=== PATIENT | male | born 1930 | race Caucasian/White ===

== ENCOUNTER 2017-01-21 07:10 | Day surgery (SDC) | payer MEDICARE, OTHER ==
[~2017-01-21] VITALS: Ht 167.6 cm; Wt 74.8 kg
[~2017-01-21 07:10] MED LIST: AMLO5TAB2 PO; HYDR25TAB PO; LISI-542 PO; LISI2.5T76 PO; SIMV5TAB4 PO; XARE15TA PO
[2017-01-21] MEDS ORDERED: LR 1,000 ML IV ONE (07:30)
[2017-01-21] MEDS ORDERED: PROPOFOL 200 MG/20 ML VIAL As Ordered ONE ×2 (08:14→12:37)
[2017-01-21] MEDS ORDERED: LIDOCAINE 2% INJ 100 MG/5 ML SDV (FOR ANES.) As Ordered ONE (08:14)
[2017-01-21] MEDS ORDERED: MIDAZOLAM INJ 2 MG/2 ML VIAL (J2250) As Ordered ONE (08:15)
[2017-01-21] MEDS ORDERED: fentaNYL 100 MCG/2 ML INJECTION (J3010) As Ordered ONE (08:15)
[2017-01-21] MEDS ORDERED: ISOVUE-300 61% 50ML VIAL (Q9967) As Ordered ONE (09:30)
[2017-01-21] MEDS ORDERED: LIDOCAINE 1% SDV INJ 30 ML VIAL As Ordered ONE (09:30)
[2017-01-21] MEDS ORDERED: ONDANSETRON 4MG/2ML VIAL (J2405) IV PRN (13:45)
[2017-01-21] MEDS ORDERED: LR 1,000 ML IV SCH (13:45)
[2017-01-21] MEDS ORDERED: fentaNYL 100 MCG/2 ML INJECTION (J3010) IV PRN (13:45)
--- NOTE | 2017-01-21 14:03 | REP ---
AP PORTABLE CHEST: 01/21/2017. Clinical history: Status post single lead pacer placement. Comparison: 06/17/2015 chest x-ray. Findings: Two AP semi-erect portable chest were performed to encompass the entirety of the chest. Skin di and a battery unit for pacer over the left upper chest noted with the single lead terminating in the right ventricle. The lungs are hyperinflated. There is some underlying mild interstitial fibrotic change but no pleural effusion, lateral pleural thickening or pneumothorax visible on the left side and either lung shows consolidation or atelectasis. Heart size not grossly enlarged. There is no vascular redistribution or pulmonary edema. The aorta and airway intact. Bones intact with minor degenerative changes, shoulders and spine. Impression: 1. There is a new single lead pacer over the left upper chest with skin di above the battery unit and with the lead terminating in the apex of the right ventricle. 2. No gross cardiomegaly or edema. I see no infiltrate, effusion, atelectasis or mass. No pneumothorax. Signed by Morgan Escobar MD 01/21/2017 02:35 P
--- NOTE | 2017-01-21 14:27 | RO ---
DATE OF PROCEDURE: 01/21/2017 PREOPERATIVE DIAGNOSES: 1. Intermittent high-grade AV block. 2. Chronic atrial fibrillation. POSTOPERATIVE DIAGNOSES: 1. Intermittent high-grade AV block. 2. Chronic atrial fibrillation. PROCEDURE: Implantation of single chamber ventricular demand pacemaker. IMPLANTING REVIEW SCHEDULING COORDINATOR: Dr. Monroe Curtis ANESTHESIOLOGIST: Dr. Leyva TYPE OF ANESTHESIA: Monitored local anesthesia. CLINICAL SUMMARY: This 86-year-old, , resident of [place], [place], is well-known to Dr. Manzanares's cardiology service with known hypertensive heart disease complicated by abnormal EKG, atrial fibrillation, and intermittent high-grade AV block. His atrial arrhythmia had been paroxysmal, but EKG on January 14, 2017 showed atrial fibrillation with controlled ventricular rate with QRS complexes occurring in a bigeminal pattern. Rate without negative chronotropic therapy was only 59 BPM. A Holter monitor documented significant pauses of up to 3 seconds on recurrent occasions. In light of this, he was referred to our pacemaker service for device implantation. At this point, he has been feeling fairly well, ultimately limited by dyspnea. He has been free of any chest pain, shortness of breath, palpitations or dizziness. On oral anticoagulant therapy, has been free of any symptom or sign of embolic phenomenon. Echocardiogram on April 06, 2015 showed left ventricle hypertrophy with LVEF of 60%-65% with fairly severely dilated left atrium. In light of this and his current persistent atrial fibrillation (present on monitor today), we elected to proceed with a single chamber pacemaker. We explained this to the patient and his family who appear to understand and agree. Pleasant, elderly male lying comfortably. Heart rate 60 BPM and irregular. Blood pressure 136/74 in the right arm supine. Respiratory 16 per minute. Oxygen saturation 96% on room air. BMI 26.5. No pallor or icterus. Normal oral moisture. Trachea midline. Neck veins were not elevated. Good air entry over both lung harvey with no adventitious sounds. Apical impulse at mid clavicular line, fifth intercostal space. S1 and S2 were variable. No audible murmur. No dependent edema. Soft abdomen. Normal pedal pulses. EKG shows atrial fibrillation with somewhat slow ventricular response and frequent PVCs. Complete blood count July 18, 2015 showed a hemoglobin of 13.6. Chemistry was normal with a BUN slightly elevated 35 with creatinine 1.8 and glucose 93. TSH was normal at 1.27. DESCRIPTION OF PROCEDURE: In a fasting state following informed consent and Ancef 2 grams IV premedication, the patient was taken to the operating theater. Numerous skin electrodes were applied to facilitate continuous electrocardiographic monitoring. The left subclavian region was prepped and draped in the usual fashion and the skin was infiltrated with 1% Xylocaine. The left axillary vein was catheterized and with considerable difficulty we were able to advance the guidewire down the greater veins to his inferior vena cava below his diaphragm. Unfortunately, his upper neck veins were extremely tortuous and getting the guidewire in appropriate position took considerably longer than normal. A 5 cm linear incision was made several centimeters below and parallel to the left clavicle. Dissection was carried down to the level of the pectoralis fascia and a pocket was fashioned below level of the incision line. A single bipolar active fixation screw-in steroid eluting pacing lead was then positioned to the right ventricular apex under fluoroscopic and electrocardiographic control. The ventricular lead ([employer], model number [id number], serial number [id number]) measurements were: Stimulation threshold 0.4 V/0.4 ms/impedance 1190 ohms. The R wave measured 5.1 mV. This lead was secured in position with a sleeve sutured at its insertion site. It was then connected to a single chamber pulse generator ([employer] - Assurity MRI compatible, model number [id number], serial number [id number]) and appropriate VVI pacing was documented. The generator was placed in the pocket and secured in position with a suture through the upper right-hand corner of the epoxy header. The subcutaneous tissues were approximated using a running chromic suture and the skin was closed using di. A dry dressing was applied. The patient was returned to the recovery room in good condition. No apparent complications. Estimated blood loss 5-10 mL. A portable upright chest x-ray postoperatively showed good lead position with no pneumothorax. EKG showed consistent ventricular pacing at 60 BPM. Our plan is to monitor the patient in hospital overnight and he will receive an additional three doses of Ancef 1 gram every 8 hours IV. A followup PA and left lateral chest x-ray and EKG will be obtained in the morning and his device will be reinterrogated prior to his discharge; hopefully, before noon.
[2017-01-21 15:50] VITALS: BP 141/71
[2017-01-21 16:20] VITALS: BP 140/68
[2017-01-21 17:20] VITALS: BP 153/68
[2017-01-21] MEDS: ACETAMINOPHEN TAB 650MG DOSE (2X325MG) PO PRN (17:58)
[2017-01-21 18:20] VITALS: BP 123/60
[2017-01-21 19:20] VITALS: BP 131/61
[2017-01-21] MEDS ORDERED: SIMVASTATIN 5 MG TAB PO SCH (21:00)
--- NOTE | 2017-01-21 21:35 | ECGEPIP ---
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
[2017-01-22 00:05] VITALS: BP 144/63
[2017-01-22] MEDS: ACETAMINOPHEN TAB 650MG DOSE (2X325MG) PO PRN (00:44)
[2017-01-22] MEDS ORDERED: SLF 3 ML SYR IV PRN (01:45)
[2017-01-22 03:22] VITALS: BP 146/83
[2017-01-22 08:00] VITALS: BP 148/66
[2017-01-22] MEDS ORDERED: LISINOPRIL 5 MG TAB PO SCH (08:00)
[2017-01-22] MEDS ORDERED: amLODIPine 5 MG TAB PO SCH (09:00)
[2017-01-22 09:13] VITALS: BP 142/60
--- NOTE | 2017-01-22 09:25 | REP ---
PA LATERAL CHEST: 01/22/2017. Clinical history: Postop pacemaker. Comparison: Portable chest 01/21/2017, 06/17/2015. Findings: Skin di and a battery unit from a single lead pacer now present in the left upper chest. Single lead terminates in the right ventricle near the apex. I do not see pneumothorax. There is some fibrotic change in both CP angles but no gross evidence for effusion. No dense consolidation. Underlying COPD. Some mild pulmonary artery hypertension noted. No pulmonary edema. The heart is not enlarged. The aorta is calcified at the arch without aneurysm. Airway is intact. Bony thorax shows no compression deformity. Nipple shadows project over the anterior sixth ribs in a symmetric fashion bilaterally. Impression: 1. New single lead pacer over the left upper chest with its lead tip near the right ventricular apex. 2. No effusion or cardiomegaly on the left with underlying fibrosis, COPD, pulmonary artery hypertension but no edema. 3. Aorta normal for age. No widening the mediastinum. Bones intact. Signed by Morgan Escobar MD 01/22/2017 09:16 A
--- NOTE | 2017-01-22 20:36 | ECGEPIP ---
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
--- NOTE | 2017-01-22 21:17 | IPN ---
DATE: 01/22/2017 CARDIOLOGY PROGRESS NOTE SUBJECTIVE: Has had some mild incisional discomfort but has been up in the room without dizziness and is anxious to go home. No other chest discomfort or shortness of breath and no dizziness. OBJECTIVE: Pleasant, bright, elderly male sat comfortably. Heart rate 60 beats per minute (BPM) and regular, blood pressure 140/60, respiratory 18, oxygen (O2) saturation 95% on room air. He was afebrile. Weight is down a kilogram from yesterday despite intake and output (I and O) balance measuring positive 650 mL. No pallor or cyanosis. Normal oral moisture. Trachea midline. Neck veins do not appear elevated. Normal chest configuration with good air entry over both lung harvey. His pacer incision appears to be healing well. Dressing was changed today. No dependent edema. 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 PA and left lateral chest x-ray taken this morning was reviewed independently and showed cardiomegaly with stable pacing lead position in the RV apex. Hyperinflated lung harvey with increased interstitial markings but these were unchanged. EKG: Tracing this morning again shows underlying atrial fibrillation with consistent ventricular pacing having a QRS complex with leftward axis and left bundle branch block configuration in keeping with RV apical stimulation. This was unchanged from last evening. IMPRESSION/PLAN: 1. Hypertensive heart disease (benign without heart failure): No symptoms or signs of congestion. Blood pressure today is slightly higher than prior to admission as I had temporarily reduced his dose of amlodipine and lisinopril postoperatively. He will continue on his customary antihypertensive therapy at home including amlodipine 5 mg daily, lisinopril 5 mg daily, hydrochlorothiazide 25 mg daily. 2. Atrial fibrillation (chronic): Rate is controlled, related to his AV conduction problems. His oral anticoagulation, Xarelto 50 mg daily, will be restarted tomorrow morning. 3. AV block (high grade)/single chamber pacemaker in situ: Minimal incisional discomfort. Incision appears to be healing well. Chest x-ray and EKG confirm stable lead position. Complete pacemaker interrogation was performed today showing excellent intracardiac electrograms and pacing threshold. Auto capture function was activated. The patient was allowed home today with instructions to avoid getting his incision wet until his di are removed in my office January 30, 2017, at 9:00 a.m. He was also requested to perform only light activities of daily living with his left arm. He was encouraged to contact us promptly for any abnormal erythema, swelling or discharge.
== END 2017-01-22 14:43 | disposition home or self-care (01) ==
LOC: M SDC 07:10 → M PCU 15:44 → M SDC 01-22 14:43
PROVIDERS: ATTEND Internal Medicine Cardiovascular Disease
DX: I44.1 Atrioventricular block, second degree (principal); I48.0 Paroxysmal atrial fibrillation; E78.5 Hyperlipidemia, unspecified; R06.02 Shortness of breath; I10 Essential (primary) hypertension; R94.31 Abnormal electrocardiogram [ECG] [EKG]; Z79.899 Other long term (current) drug therapy; Z79.01 Long term (current) use of anticoagulants; Z87.891 Personal history of nicotine dependence
CPT/HCPCS: 33207; 71010; 71020; 76000; 93005; 96365; 96366; 96376; C1786; C1898; J0690; J2250; J3010; Q9967